=== PATIENT | male | born 1985 | race Two or more races ===

== ENCOUNTER 2023-06-06 01:04 | Emergency (ER) | payer OTHER ==
[~2023-06-06] VITALS: Ht 172.7 cm; Wt 70.3 kg
[2023-06-06] MEDS ORDERED: CYCL5TAB PO (03:30)
[2023-06-06 03:39] VITALS: BP 128/89; TEMP 98.1; O2SAT 99
== END 2023-06-06 03:40 | disposition home or self-care (01) ==
LOC: ER 01:06
DX: M25.512 Pain in left shoulder (principal)
CPT/HCPCS: 73030-TC